=== PATIENT | female | born 2000 | race Hispanic/Latino ===

== ENCOUNTER 2023-08-11 10:18 | Inpatient (IN) | payer OTHER ==
[2023-08-10 14:10] LABS: Hematocrit 37.5 % (34.9-44.5); Hemoglobin 12.4 g/dL (12.0-15.5); Mean Corpuscular HGB CONC 33.1 g/dL (32.0-36.0); Mean Corpuscular Hemoglobin 27.3 pg (27.0-33.0); Mean Corpuscular Volume 82.4 fl (81.6-98.3); Mean Platelet Volume 10.9 fl (7.4-10.4); Platelet Count 253 10x3/uL (150-450); RBC Distribution Width 14.8 % (11.5-14.5); Red Blood Cell (RBC) Count 4.55 10x6/uL (3.90-5.03); White Blood Cell (WBC) Count 7.6 10x3/uL (3.5-10.5)
[2023-08-10 14:53] LABS: Syphilis Antibody Nonreactive (Nonreactive); Syphilis Antibody Index 0.07 S/CO (<1.00 Non-Reactive)
[2023-08-10 14:54] LABS: HBSAg Index 0.18 S/CO (0-0.99); Hep B Surf Ag Non-Reactive S/CO (NonReactive)
[2023-08-11] MEDS ORDERED: hydrALAZINE 20 MG/ML VIAL SLOW IVP PRN ×2 (10:40→15:30)
[2023-08-11] MEDS ORDERED: Ondansetron PF 4 MG/2 ML Vial IVP PRN ×4 (10:40→15:30)
[2023-08-11] MEDS ORDERED: Bicitra 30 ML UDCUP PO PRN (10:40)
[2023-08-11] MEDS ORDERED: Tranexamic Acid 1,000 MG/10 ML VIAL IVP PRN (10:40)
[2023-08-11] MEDS ORDERED: Famotidine/PF 20 mg/2ml Vial SLOW IVP PRN (10:40)
[2023-08-11] MEDS ORDERED: Diphenoxylate HCl/Atropine Tablet PO PRN (10:40)
[2023-08-11] MEDS ORDERED: Promethazine HCl 25 MG/ML VIAL IM PRN ×2 (10:40→11:56)
[2023-08-11] MEDS ORDERED: Methylergonovine 0.2 MG/ML VIAL IM PRN (10:40)
[2023-08-11] MEDS ORDERED: Misoprostol 200 MCG TAB PR PRN (10:40)
[2023-08-11] MEDS ORDERED: Carboprost 250 MCG/ML AMP IM PRN (10:40)
[2023-08-11] MEDS ORDERED: Oxytocin 30 units/NS 500 ML 500 ML IV SCH (10:45)
[2023-08-11] MEDS ORDERED: CEFAZOLIN 2 GM in Sodium Chloride 0.9% 100 ML IVPB SCH (10:45)
[2023-08-11] MEDS ORDERED: Lactated Ringer's 1,000 ML IV SCH (10:45)
[2023-08-11 10:55] VITALS: BMI 36.3
[2023-08-11] MEDS ORDERED: Moisturizing Cream (Eucerin) 113 GM JAR TOP PRN (11:56)
[2023-08-11] MEDS ORDERED: Meperidine HCl/PF 25 MG (1 mL) VIAL SLOW IVP PRN (11:56)
[2023-08-11] MEDS ORDERED: Naloxone HCl 0.4 mg/ml Vial IVP PRN ×2 (11:56)
[2023-08-11] MEDS ORDERED: Ketorolac Tromethamine 30 MG (1 mL) VIAL IVP PRN (11:56)
[2023-08-11] MEDS ORDERED: Promethazine HCl 25 MG SUPP PR PRN (11:56)
[2023-08-11] MEDS ORDERED: fentaNYL 50 mcg/mL 1 mL Vial SLOW IVP PRN (11:56)
[2023-08-11] MEDS ORDERED: diphenhydrAMINE 50 MG/ML VIAL IVP PRN (11:56)
[2023-08-11] MEDS ORDERED: Naloxone HCl 0.4 mg/ml Vial IV PRN (11:56)
[2023-08-11] MEDS ORDERED: Communication Order-Pharmacy FS SCH (12:00)
[2023-08-11] MEDS ORDERED: Ondansetron PF 4 MG/2 ML Vial ONE (12:00)
[2023-08-11] MEDS ORDERED: PHENYLEPHRINE-NS 100 MCG/ML 10 ML SYRINGE ONE (12:00)
[2023-08-11] MEDS ORDERED: Ketorolac Tromethamine 30 MG (1 mL) VIAL ONE (12:00)
[2023-08-11] MEDS ORDERED: Morphine PF 10 MG/10 ML VIAL ONE (12:00)
[2023-08-11] MEDS ORDERED: Dexamethasone 4 mg/ml Vial ONE (12:00)
[2023-08-11] MEDS ORDERED: Ketorolac Tromethamine 30 MG (1 mL) VIAL IVP SCH (12:00)
[2023-08-11] MEDS ORDERED: Oxytocin 10 UNITS/ML VIAL ONE ×2 (12:00→12:04)
[2023-08-11] MEDS ORDERED: ePHEDrine Sulfate 50 MG/10 ML VIAL ONE (12:00)
[2023-08-11] MEDS ORDERED: Glycopyrrolate 0.2 MG/ML 5 ML SYRINGE ONE (12:00)
[2023-08-11] MEDS ORDERED: Lanolin Ointment 7 GM TUBE TOP PRN (15:30)
[2023-08-11] MEDS ORDERED: Bisacodyl 10 MG SUPP PR PRN (15:30)
[2023-08-11] MEDS ORDERED: HYDROcodone/Acetaminophen 5/325 mg Tablet PO PRN (15:30)
[2023-08-11] MEDS ORDERED: Boostrix 0.5 ML (Tdap) VIAL (>/=7 yrs of age) IM ONE (15:30)
[2023-08-11] MEDS ORDERED: diphenhydrAMINE 25 MG CAP PO PRN (15:30)
[2023-08-11] MEDS ORDERED: Simethicone Chewable 80 MG TAB PO PRN (15:30)
[2023-08-11] MEDS ORDERED: Meperidine HCl/PF 25 MG (1 mL) VIAL IM PRN (15:30)
[2023-08-11] MEDS: Ketorolac Tromethamine 30 MG (1 mL) VIAL IVP SCH (21:46)
[2023-08-11] MEDS: Ferrous Sulfate 325 MG TAB PO SCH (21:47)
[2023-08-11] MEDS: Docusate 100 MG CAP PO SCH (21:49)
[2023-08-12] MEDS: Ketorolac Tromethamine 30 MG (1 mL) VIAL IVP SCH ×2 (00:53→07:11)
[2023-08-12 05:44] LABS: Hemoglobin 10.8 g/dL (12.0-15.5); Mean Corpuscular HGB CONC 33.8 g/dL (32.0-36.0); Mean Corpuscular Hemoglobin 28.8 pg (27.0-33.0); Mean Corpuscular Volume 85.3 fl (81.6-98.3); Mean Platelet Volume 10.8 fl (7.4-10.4); Platelet Count 205 10x3/uL (150-450); RBC Distribution Width 14.9 % (11.5-14.5); Red Blood Cell (RBC) Count 3.75 10x6/uL (3.90-5.03); White Blood Cell (WBC) Count 10.2 10x3/uL (3.5-10.5)
[2023-08-12] MEDS: Ferrous Sulfate 325 MG TAB PO SCH ×2 (07:12→23:58)
[2023-08-12] MEDS: Prenatal Vitamin 1 TAB PO SCH (07:59)
[2023-08-12] MEDS: Docusate 100 MG CAP PO SCH ×2 (07:59→21:35)
[2023-08-12] MEDS: HYDROcodone/Acetaminophen 5/325 mg Tablet PO PRN ×2 (11:09→16:19)
[2023-08-12] MEDS: Ibuprofen 800 MG TAB PO SCH ×2 (14:05→21:35)
[2023-08-13] MEDS: Ibuprofen 800 MG TAB PO SCH ×3 (05:41→21:52)
[2023-08-13] MEDS: Ferrous Sulfate 325 MG TAB PO SCH ×2 (07:09→21:48)
[2023-08-13] MEDS: HYDROcodone/Acetaminophen 5/325 mg Tablet PO PRN ×2 (07:57)
[2023-08-13] MEDS: Docusate 100 MG CAP PO SCH ×2 (07:57→21:52)
[2023-08-13] MEDS: Prenatal Vitamin 1 TAB PO SCH (07:57)
[2023-08-14] MEDS: Ibuprofen 800 MG TAB PO SCH ×2 (05:13→15:32)
[2023-08-14] MEDS: Ferrous Sulfate 325 MG TAB PO SCH (08:15)
[2023-08-14] MEDS: Docusate 100 MG CAP PO SCH (08:19)
[2023-08-14] MEDS: Prenatal Vitamin 1 TAB PO SCH (08:19)
[2023-08-14 08:40] VITALS: BP 123/67; TEMP 98.2
== END 2023-08-14 17:10 | disposition home or self-care (01) | DRG 788 ==
LOC: CSHLD 10:18 → CSHPP 16:25
PROVIDERS: ADMIT Family Medicine; ATTEND Family Medicine
PROC: 10D00Z1 Extraction of Products of Conception, Low, Open Approach (ICD-10-PCS; principal; 2023-08-11)
DX: O34.211 Maternal care for low transverse scar from previous cesarean delivery (principal); Z3A.40 40 weeks gestation of pregnancy; O48.0 Post-term pregnancy; Z37.0 Single live birth
CPT/HCPCS: 36415; 51702; 85027; 86780; 86850; 86900; 86901; 87340; J1100; J1885; J2274; J2405; J2590; J3490